=== PATIENT | female | born 1990 | race Caucasian/White ===

== ENCOUNTER 2016-06-12 18:42 | Emergency (ER) | payer OTHER ==
[2016-06-12 19:06] VITALS: BP 143/84
== END 2016-06-12 19:41 | disposition left against medical advice (07) ==
LOC: ED 18:42
DX: Z53.21 Procedure and treatment not carried out due to patient leaving prior to being seen by health care provider (principal)

== ENCOUNTER 2016-08-16 10:25 | Emergency (ER) | payer OTHER ==
[2016-08-16 10:36] VITALS: BP 109/61
== END 2016-08-16 10:50 | disposition left against medical advice (07) ==
LOC: ED 10:25
DX: Z53.21 Procedure and treatment not carried out due to patient leaving prior to being seen by health care provider (principal)

== ENCOUNTER 2017-04-11 17:34 | Emergency (ER) | payer OTHER ==
[~2017-04-11] VITALS: Ht 154.9 cm; Wt 105.7 kg
[2017-04-11 17:46] VITALS: Ht 154.9 cm; Wt 105.7 kg
[2017-04-11 18:55] VITALS: BP 149/79
== END 2017-04-11 18:55 | disposition home or self-care (01) ==
LOC: ED 17:34
DX: R30.0 Dysuria (principal); R39.15 Urgency of urination; R35.0 Frequency of micturition
CPT/HCPCS: J0696; J2001

== ENCOUNTER 2018-06-07 13:03 | Emergency (ER) | payer OTHER ==
[~2018-06-07] VITALS: Ht 152.4 cm; Wt 104.3 kg
[2018-06-07 13:06] VITALS: BP 130/93; Ht 152.4 cm; Wt 104.3 kg
[2018-06-07 14:22] LABS: BASOPHIL % 0.5 % (0-2); PLATELET COUNT 283 x10^3mcL (130-400)
== END 2018-06-07 14:40 | disposition home or self-care (01) ==
LOC: ED 13:03
PROVIDERS: Emergency Medicine
DX: N93.8 Other specified abnormal uterine and vaginal bleeding (principal)
CPT/HCPCS: 36415

== ENCOUNTER 2018-06-16 12:09 | Emergency (ER) | payer OTHER ==
[~2018-06-16] VITALS: Ht 154.9 cm; Wt 103.9 kg
[2018-06-16 12:13] VITALS: Ht 154.9 cm; Wt 103.9 kg
[2018-06-16 14:33] LABS: BASOPHIL % 0.3 % (0-2); PLATELET COUNT 317 x10^3mcL (130-400); RED CELL DISTRIBUTION WIDTH 14.5 % (11.5-14.5)
[2018-06-16 14:35] LABS: CALCIUM 8.5 mg/dL (8.5-10.1); CARBON DIOXIDE 28.1 mmol/L (21-32); CHLORIDE SERUM 101 mmol/L (98-107); CREATININE SERUM 0.6 mg/dL (0.6-1.0); GFR1 > 60 mL/min; GLUCOSE SERUM 91 mg/dL (74-106); SODIUM SERUM 135 mmol/L (136-145)
[2018-06-16 14:47] LABS: ALBUMIN 3.4 g/dL (3.4-5.0); ALKALINE PHOSPHATASE 62 U/L (46-116); ALT/SGPT 22 U/L (14-59); AST/SGOT 11 U/L (15-37); BILIRUBIN TOTAL 0.3 mg/dL (0.20-1.00); T4(THYROXINE) 7.5 ug/dL (4.7-13.3); TOTAL PROTEIN, SERUM 8.1 g/dL (6.4-8.2)
[2018-06-16 16:50] VITALS: BP 106/65
== END 2018-06-16 16:50 | disposition home or self-care (01) ==
LOC: ED 12:09
PROVIDERS: Emergency Medicine
DX: N93.8 Other specified abnormal uterine and vaginal bleeding (principal); E66.01 Morbid (severe) obesity due to excess calories; Z68.41 Body mass index [BMI] 40.0-44.9, adult
CPT/HCPCS: 36415; J7030; Q0092

== ENCOUNTER 2018-09-27 01:23 | Emergency (ER) | payer OTHER ==
[~2018-09-27] VITALS: Ht 152.4 cm; Wt 107.5 kg
[2018-09-27 05:22] VITALS: BP 131/78
== END 2018-09-27 05:22 | disposition home or self-care (01) ==
LOC: ED 01:23
DX: M54.6 Pain in thoracic spine (principal)
CPT/HCPCS: J1885